=== PATIENT | male | born 1945 | race Caucasian/White ===

== ENCOUNTER → 2017-01-01 | Outpatient (CLI) | payer OTHER | LOC: BHFA 14:15 | PROVIDERS: ATTEND Internal Medicine Interventional Cardiology | DX: I25.10 Atherosclerotic heart disease of native coronary artery without angina pectoris (principal); E78.5 Hyperlipidemia, unspecified ==

== ENCOUNTER → 2017-04-29 | Outpatient (CLI) | payer OTHER | LOC: FIMAGING 12:47 | PROVIDERS: ATTEND Orthopaedic Surgery | DX: Z01.818 Encounter for other preprocedural examination (principal); M17.11 Unilateral primary osteoarthritis, right knee ==

== ENCOUNTER 2017-05-14 09:16 | Inpatient (IN) | payer OTHER ==
[~2017-05-14 09:16] MED LIST: ROPIVACAINE 0.2% 80 MG, EPINEPHrine 0.2 MG, KETOROLAC TROMETHAMINE 30 MG in BAG 0 ML IU ONE; TRANEXAMIC ACID 3,000 MG in NS 50 ML IRR ONE; TRANEXAMIC ACID 3,000 MG/50 ML BAG IRR ONE; VANCOMYCIN 1 GM VIAL ONE
[2017-05-14] MEDS ORDERED: ceFAZolin 2 GM/DEXTROSE 100 ML IV ONE (09:19)
[2017-05-14] MEDS ORDERED: FAMOTIDINE 20 MG TAB PO ONE (09:19)
[2017-05-14] MEDS ORDERED: ACETAMINOPHEN 325 MG TAB PO ONE (09:19)
[2017-05-14] MEDS ORDERED: DEXAMETHASONE 4 MG/ML VIAL IVP ONE (09:19)
--- NOTE | 2017-05-14 09:24 | PDHPUP ---
History & Physical Update H&P update statement: This history and physical update is based on an assessment of the patient which was completed after admission or registration (within 24 hours), but prior to the surgery/procedure. H&P update: H&P reviewed & patient examined, no change in patient's condition since H&P completed
[2017-05-14] MEDS ORDERED: LIDOCAINE 1% 2 ML INJ ID PRN (09:52)
[2017-05-14] MEDS ORDERED: LR 1,000 ML IV ONE (09:52)
[2017-05-14] MEDS ORDERED: MIDAZOLAM 2 MG/2 ML VIAL IVP ONE (11:12)
--- NOTE | 2017-05-14 11:14 | PDANEPAE ---
ANE Past Medical History - Cardiovascular History Hx Hypertension: No Hx Arrhythmias: No Hx Chest Pain: No Hx Coronary Artery / Peripheral Vascular Disease: Yes Hx CHF / Valvular Disease: No Hx Palpitations: No Cardiovascular History Comment: Coronry artery stent placed 2006 - Pulmonary History Hx COPD: Yes Hx Asthma/Reactive Airway Disease: Yes Hx Recent Upper Respiratory Infection: No Hx Oxygen in Use at Home: No Hx Sleep Apnea: No Sleep Apnea Screening Result - Last Documented: Negative Pulmonary History Comment: bronchitis 10/2016 - Neurologic History Hx Cerebrovascular Accident: No Hx Seizures: No Hx Dementia: No - Endocrine History Hx Diabetes: No Hypothyroid: No Hyperthyroid: No Obesity: no - Renal History Hx Renal Disorders: No - Liver History Hx Hepatic Disorders: No - Neurological & Psychiatric Hx Hx Neurological and Psychiatric Disorders: No - Cancer History Hx Cancer: No - Congenital Disorder History Hx Congenital Disorders: No - GI History Hx Gastrointestinal Disorders: No - Other Health History Other Health History: cataract surgery 2016 - Surgical History Prior Surgeries: Coronary artery stent 2006. Hernia Repair 2007. Lt Knee replacement 2012. cataract surgery 2017. RCR 2001 ANE Review of Systems Review of Systems: - Exercise capacity Exercise capacity: limited by disability METS (RN): 4 METS ANE Patient History - Allergies Allergies/Adverse Reactions: No Known Allergies Allergy (Unverified 04/20/17 13:44) - Home Medications Home Medications: Cholecalciferol Vit D3 [Vitamin D3 (*)] 2,500 units PO DAILY 04/20/17 [Last Taken 04/30/17] Herbals/Supplements -Info Only 1 ea PO DAILY 04/20/17 [Last Taken 04/30/17] buPROPion SR [Wellbutrin 150mg SR (*)] 150 mg PO HS PRN 04/20/17 [Last Taken 12/23] clonazePAM [Klonopin (*)] 0.5 mg PO BID PRN 04/20/17 [Last Taken 05/13/17] traZODone [traZODone 150MG (*)] 75 - 150 mg PO HS 04/20/17 [Last Taken 05/13/17] Albuterol [Proventil Inhaler HFA (*)] 1 - 2 puffs IH Q4H PRN 04/21/17 [Last Taken 05/14/17] Aspirin [Aspirin 81mg (*)] 81 mg PO DAILY 04/21/17 [Last Taken 04/30/17] Atorvastatin Calcium [Lipitor 40 mg (*)] 40 mg PO DAILY 04/21/17 [Last Taken 12/23] Fluticasone/Salmeter 250/50Mcg [Advair 250/50 (*)] 1 puffs IH BID 04/21/17 [ Last Taken 05/11/17] Sildenafil Citrate [Viagra 50 MG (*)] 100 mg PO DAILY PRN 04/21/17 [Last Taken Unknown] Levothyroxine [Synthroid 150 mcg (*)] 150 mcg PO DAILY06 05/14/17 [Last Taken 08:00] buPROPion SR [Wellbutrin 150mg SR (*)] 150 mg PO DAILY 05/14/17 [Last Taken 12/23] - NPO status NPO Since - Liquids (Date): 05/13/17 NPO Since - Liquids (Time): 22:00 NPO Since - Solids (Date): 05/14/17 NPO Since - Solids (Time): 08:00 - Anes Hx Anes Hx: no prior problems - Smoking Hx Smoking Status: Current some day smoker - Alcohol Use Alcohol Use: Rarely - Family Anes Hx Family Anes Hx: neg - N/A Family Hx Anesthesia Complications: NEG ANE Labs/Vital Signs - Vital Signs Blood Pressure: 104/68 Heart Rate: 46 Respiratory Rate: 16 O2 Sat (%): 94 Height: 175.26 cm Weight: 70.76 kg ANE Physical Exam - Airway Neck exam: FROM Mallampati Score: Class 2 Mouth exam: normal dental/mouth exam - Pulmonary Pulmonary: no respiratory distress, no rales or rhonchi, clear to auscultation - Cardiovascular Cardiovascular: regular rate and rhythym - ASA Status ASA Status: III ANE Anesthesia Plan Anesthesia Plan: MAC, spinal Regional Anesthesia: adductor canal FNB (block to be done in pacu)
[2017-05-14] MEDS ORDERED: fentaNYL 100 MCG/2 ML INJ ONE (11:23)
[2017-05-14] MEDS ORDERED: MEPERIDINE 25 MG/ML SYR IVP PRN (11:29)
[2017-05-14] MEDS ORDERED: LR 500 ML IV PRN (11:29)
[2017-05-14] MEDS ORDERED: NALOXONE HCL 0.4 MG/ML INJ IVP PRN (11:29)
[2017-05-14] MEDS ORDERED: ONDANSETRON 4 MG/2 ML VIAL IVP PRN ×2 (11:29→12:35)
[2017-05-14] MEDS ORDERED: DIPHENOXYLATE/ATROPINE LOMOTIL 1 TAB PO PRN (12:35)
[2017-05-14] MEDS ORDERED: MAGNESIUM HYDROXIDE 30 ML UDCUP PO PRN (12:35)
[2017-05-14] MEDS ORDERED: ONDANSETRON DISINTEGRATING 4 MG TAB PO PRN (12:35)
[2017-05-14] MEDS ORDERED: LACTULOSE 20 GM/30 ML UDCUP PO PRN (12:35)
[2017-05-14] MEDS ORDERED: POLYETHYLENE GLYCOL 3350 17 GM PKT PO PRN (12:35)
[2017-05-14] MEDS ORDERED: BISACODYL 10 MG SUPP PR PRN (12:35)
[2017-05-14] MEDS ORDERED: diphenhydrAMINE 25 MG CAP PO PRN (12:35)
[2017-05-14] MEDS ORDERED: PROMETHAZINE HCL 25 MG SUPPR PR PRN (12:35)
[2017-05-14] MEDS ORDERED: CYCLOBENZAPRINE 10 MG TAB PO PRN (12:35)
[2017-05-14] MEDS ORDERED: PROMETHAZINE HCL 25 MG/ML INJ IVP PRN (12:35)
[2017-05-14] MEDS ORDERED: TEMAZEPAM 15 MG CAP PO PRN (12:35)
[2017-05-14] MEDS ORDERED: METOCLOPRAMIDE 10 MG/2 ML VIAL IVP PRN (12:35)
[2017-05-14] MEDS ORDERED: clonazePAM 0.5 MG TAB PO PRN (12:36)
[2017-05-14] MEDS ORDERED: buPROPion SR 150 MG TAB PO PRN (12:36)
[2017-05-14] MEDS ORDERED: ALBUTEROL IH PRN (12:36)
[2017-05-14] MEDS ORDERED: epHEDrine SULFATE 10 MG/ML SYR ONE ×2 (12:41→12:49)
[2017-05-14] MEDS ORDERED: LR 1,000 ML IV SCH (13:00)
[2017-05-14] MEDS ORDERED: PROPOFOL/EMULSION 500 MG/50 ML BOTTLE IV ONE (13:08)
--- NOTE | 2017-05-14 13:56 | POSTOPPROG ---
Post Op Note Date of Operation: 05/14/17 Surgeon: Marika Guerra Asset Administrator: juan m guerra Anesthesiologist: dr. robertson Anesthesia: Spinal, Other (Specify) (adductor canal block) Pre-op Diagnosis: right knee OA Post-op Diagnosis: same Indication: right knee pain due to OA that failed conservative measures Procedure: R TKA robot assisted Findings: severe knee OA Inf/Abcess present in the surg proc area at time of surgery?: No EBL: 50-100
[2017-05-14] MEDS ORDERED: ROPIVACAINE HCL 150 MG/30 ML INJ ONE (13:58)
--- NOTE | 2017-05-14 14:15 | POSTANESTH ---
Post Anesthetic Evaluation Cardiovascular Status: Similar to Pre-Op Cond, Tx Hyper/Hypo-tension Respiratory Status: Normal, Stable Level of Consciousness/Mental Status: Can Participate in Eval Pain Control: Adequate, Prn Tx Ordered Nausea/Vomiting Control: Adequate, Prn Tx Ordered Complications Possibly Related to Anesthesia: None Noted
[2017-05-14] MEDS: ACETAMINOPHEN 325 MG TAB PO SCH ×2 (19:00→23:39)
[2017-05-14] MEDS: oxyCODONE IR 5 MG TAB PO PRN ×2 (20:11→22:40)
[2017-05-14] MEDS: SENNOSIDES/DOCUSATE SODIUM TAB PO SCH (20:12)
[2017-05-14] MEDS: FAMOTIDINE 20 MG TAB PO SCH (20:12)
[2017-05-14] MEDS: ASPIRIN 325 MG TAB PO SCH (20:12)
[2017-05-14] MEDS: ceFAZolin 2 GM/DEXTROSE 100 ML IV SCH (20:13)
[2017-05-14] MEDS: SALMETER IH SCH (22:07)
[2017-05-14] MEDS: FLUTICASONE IH SCH (22:07)
[2017-05-15] MEDS: oxyCODONE IR 5 MG TAB PO PRN ×2 (02:26→09:06)
[2017-05-15] MEDS: ceFAZolin 2 GM/DEXTROSE 100 ML IV SCH (03:45)
[2017-05-15 05:20] LABS: HEMATOCRIT 36.6 % (40.0-51.0); HEMOGLOBIN 12.1 g/dL (13.7-17.5)
[2017-05-15] MEDS: ACETAMINOPHEN 325 MG TAB PO SCH (05:41)
[2017-05-15] MEDS ORDERED: LEVOTHYROXINE 150 MCG TAB PO SCH (06:00)
[2017-05-15 07:43] VITALS: BP 102/58; PULSE 48; RESP 18; TEMP 97.9; O2SAT 93
[2017-05-15] MEDS ORDERED: ATORVASTATIN CALCIUM 40 MG TAB PO SCH (09:00)
[2017-05-15] MEDS ORDERED: buPROPion SR 150 MG TAB PO SCH (09:00)
[2017-05-15] MEDS: ASPIRIN 325 MG TAB PO SCH (09:05)
[2017-05-15] MEDS: SENNOSIDES/DOCUSATE SODIUM TAB PO SCH (09:05)
[2017-05-15] MEDS: FAMOTIDINE 20 MG TAB PO SCH (09:06)
[2017-05-15] MEDS: SALMETER IH SCH (10:23)
[2017-05-15] MEDS: FLUTICASONE IH SCH (10:23)
--- NOTE | 2017-05-15 11:18 | SOAPPROG ---
SOALEXEY Progress Note Assessment/Plan: Assessment: Kike is POD 1 s/p R TKA 1) pain management: pain is well controlled on oral pain meds. adductor canal block is still working, but starting to wear off 2) Anemia: level expected initially postop. asymptomatic. continue to monitor 3) VTE ppx: aspirin 325 mg daily for 3 weeks 4) D/c planning: d/c to home today. Plan: 05/15/17 11:16 Subjective: Kike is doing well today, denies SOB, chest pain and N/V. mild knee pain. eager for d/c Objective: Vital Signs Temp Pulse Resp BP Pulse Ox 36.6 C 48 L 18 102/58 L 93 05/15/17 07:42 05/15/17 07:42 05/15/17 07:42 05/15/17 07:42 05/15/17 07:42 Laboratory Results 05/15/17 04:35 05/14/17 05/15/17 05/16/17 05:59 05:59 05:59 Intake Total 2777 Output Total 730 Balance 2046 RLE: incision dressing is clean and dry, NVI, +pf/df ICD10 Worksheet Patient Problems: Problems Problem Status Onset Primary localized osteoarthritis of right knee Acute
--- NOTE | 2017-05-15 11:51 | ASMTCMCOM ---
CM Note CM Note Notes: Plan is for pt to DC home today with no needs per PT. Date Signed: 05/15/2017 11:51 AM Electronically Signed By:Xiomy Hill LCSW
--- NOTE | 2017-05-15 13:10 | GDS ---
[f rep st] DISCHARGE SUMMARY ADMISSION DIAGNOSIS: Right knee arthritis. DISCHARGE DIAGNOSIS: Right knee osteoarthritis. PROCEDURE: Right total knee arthroplasty, robot assisted. VTE PROPHYLAXIS: Aspirin recommend 3 weeks daily. BRIEF DESCRIPTION OF HOSPITAL STAY: Patient was admitted for an elective joint arthroplasty. The patient tolerated the procedure well and has passed physical therapy. The patient was given appropriate antibiotic prophylaxis and venous thromboembolism prophylaxis. The patient's pain was well controlled on oral pain medication, patient was holding down food, and had urinated. Decision was made to discharge the patient. The patient was given post-operative prescriptions pre-operatively. PLAN: Please follow up as scheduled with Dr. Ceballos's office on 05/27 at 11 a.m. /[id number]/MODL MTDD
--- NOTE | 2017-05-17 18:10 | GOP ---
[f rep st] OPERATIVE REPORT DATE OF OPERATION: 05/14/2017 SURGEON: Sher Ceballos MD BLOCKING MACHINE OPERATOR: NASREEN Ames. ANESTHESIA: Spinal. PREOPERATIVE DIAGNOSIS: Right knee osteoarthritis. POSTOPERATIVE DIAGNOSIS: Right knee osteoarthritis. PROCEDURE PERFORMED: Right total knee arthroplasty with computer navigation, robotic assist. FINDINGS: ESTIMATED BLOOD LOSS: 30 cc. INDICATIONS: This is a 72-year-old male with severe and progressive pain and deformity of the right knee unresponsive to conservative care. Risks and benefits of the surgical intervention were explaine d in detail. DESCRIPTION OF PROCEDURE: The patient was brought to the operative room and placed on the table in t he supine position. Spinal anesthesia was induced without difficulty. A pneumatic tourniquet was appl ied about the right proximal thigh, and the leg was prepped and draped in a sterile fashion. The leg mcgee was applied. After exsanguination by elevation the tourniquet was inflated to 250 mm of mercur y. Incision was made anterior medial from the tibial tuberosity to a point cm proximal to th e superior pole of the patella. Medial parapatellar arthrotomy was carried out from the superior pole of the patella and posteriorly in line with the fibers of the Type 2 VMO. The medial collateral liga ment was elevated and the infrapatellar fat pad was resected. The patella was everted and the articular surface was excised. A 38 mm patellar button was placed. Th e distal femoral guide hole was drilled and the 6 degree alignment nick was placed. A mm d istal femoral cut was made without difficulty. Attention was turned to the tibia and a standard mm cut based on the condyle was performed. The tibial articular surface was excised without difficulty. Attention was turned back to the femur and a size 6 femoral cutting block was positioned. Anterior, p osterior, and chamfer cuts were made, followed by the intercondylar box cut. The knee was extended and the remnants of the medial and lateral meniscus were excised. The posterior capsule was injected with ropivacaine, epinephrine and Toradol. A size 6 tibial tray was positioned. Trial reduction was then carried out. There was excellent range of motion, alignment, and stability using the 6 x 9 mm polyethylene. All trials were then removed. The joint was thoroughly irrigated and carefully dried. Two packages of cement and 2 grams of vancomycin were mixed in the vacuum mixer and placed on the fixation surfaces of all surfaces of the components. The components were implanted and all excess cement was thoroughly removed. The permanent 6 x 9 mm polyethylene was placed without difficulty. The tourniquet was deflated and all bleeders were coagulated. The wound was thoroughly irrigated and closed using interrupted sutures of 2-0 Vicryl for the joint capsule. The subcu was closed with 3-0 V icryl and the skin with 4-0 Monocryl. Dermabond and Steri-Strips were applied followed by a compressi ve dressing. The patient was then moved from the operating room to the recovery room in good conditio n, having tolerated the procedure well. PATHOLOGY: Severe tricompartmental osteoarthritis. /[id number]/MODL
== END 2017-05-15 12:32 | disposition home or self-care (01) | DRG 470 ==
LOC: F3N 09:16
PROVIDERS: ADMIT Orthopaedic Surgery; ATTEND Orthopaedic Surgery
PROC: 0SRC0J9 Replacement of Right Knee Joint with Synthetic Substitute, Cemented, Open Approach (ICD-10-PCS; principal; 2017-05-14 11:15)
DX: M17.11 Unilateral primary osteoarthritis, right knee (principal); J44.9 Chronic obstructive pulmonary disease, unspecified; Z95.5 Presence of coronary angioplasty implant and graft; Z96.652 Presence of left artificial knee joint; Z72.0 Tobacco use
CPT/HCPCS: 97161-GP; 97165-GO; C1713; G8978-GP-CI; G8979-GP-CI; G8980-GP-CI; G8987-GO-CI; G8988-GO-CI; G8989-GO-CI; J0171; J0690; J1100; J1885; J2250; J2704; J2795; J3010; J3370

== ENCOUNTER → 2018-05-25 | Outpatient (CLI) | payer OTHER | LOC: FIMAGING 18:30 | PROVIDERS: ATTEND Orthopaedic Surgery | DX: M75.92 Shoulder lesion, unspecified, left shoulder (principal); S46.212A Strain of muscle, fascia and tendon of other parts of biceps, left arm, initial encounter; S43.432A Superior glenoid labrum lesion of left shoulder, initial encounter; M19.012 Primary osteoarthritis, left shoulder ==

== ENCOUNTER → 2018-11-10 | Outpatient (CLI) | payer OTHER | LOC: FIMAGING 15:08 | PROVIDERS: ATTEND Family Medicine | DX: Z12.2 Encounter for screening for malignant neoplasm of respiratory organs (principal); Z87.891 Personal history of nicotine dependence; J43.9 Emphysema, unspecified; R91.1 Solitary pulmonary nodule; I77.810 Thoracic aortic ectasia; N28.1 Cyst of kidney, acquired ==

== ENCOUNTER 2019-01-30 11:21 | Emergency (ER) | payer OTHER | END 2019-01-30 12:20 | disposition home or self-care (01) ==